=== PATIENT | female | born 1965 | race Caucasian/White ===

== ENCOUNTER 2021-11-06 07:40 | Day surgery (SDC) | payer SELFPAY ==
[2021-11-03 16:39] LABS: BASOPHILS % (AUTO) 0.6 % (0-1); EOSINOPHILS # (AUTO) 0.2 X10'3 (0-0.9); EOSINOPHILS % (AUTO) 2.9 % (0-6); LYMPHOCYTES % (AUTO) 33.6 % (21-51); MEAN CORPUSCULAR HEMOGLOBIN 28.6 PG (27.0-31.0); MEAN CORPUSCULAR HGB CONC 33.3 g/dL (33.0-36.5); MEAN CORPUSCULAR VOLUME 85.8 FL (78-98); MEAN PLATELET VOLUME 8.3 FL (7.4-10.4); MONOCYTES # (AUTO) 0.6 X10'3 (0-0.9); MONOCYTES % (AUTO) 10.2 % (2-12); NEUTROPHILS # (AUTO) 3.2 X10'3 (1.8-7.7); NEUTROPHILS % (AUTO) 52.7 % (42-75); PRE OP PLATELET COUNT 258 X10'3 (140-440); RED BLOOD COUNT 4.55 X10'6 (4.20-5.60); RED CELL DISTRIBUTION WIDTH 13.8 % (11.5-14.5)
[2021-11-03 16:54] LABS: ALBUMIN/GLOBULIN RATIO 1.1 (1.1-1.5); ALKALINE PHOSPHATASE 70 IU/L (46-116); BLOOD UREA NITROGEN 18 MG/DL (7-18); BUN/CREATININE RATIO 27.3 (6.6-38.0); CALCIUM 9.1 MG/DL (8.5-10.1); CHLORIDE 107 MMOL/L (99-107); CREATININE 0.66 MG/DL (0.40-0.90); PRE OP ALT 25 U/L (30-65); PRE OP ANION GAP 7 (8-16); PRE OP AST 18 U/L (10-37); PRE OP BILIRUB, TOTAL 0.3 MG/DL (0.0-1.0); PRE OP GLUCOSE 80 MG/DL (70-104); PRE OP POTASSIUM 3.5 MMOL/L (3.4-5.1); PRE OP SODIUM 145 MMOL/L (135-145); TOTAL CARBON DIOXIDE 30.6 MMOL/L (24-32); TOTAL PROTEIN 7.7 G/DL (6.4-8.2); eGFR > 90 ML/MIN
[~2021-11-06] VITALS: Ht 165.1 cm; Wt 72.5 kg
[2021-11-06] VITALS (8 sets, daily range): BP systolic 106–126; BP diastolic 61–81
[~2021-11-06 07:40] MED LIST: NO HOME MEDS; famotidine 20mg tablet PO ONE; ringers solution, lacted 1,000 ML IV SCH
[2021-11-06] MEDS ORDERED: proCHLORperazine 10 MG/2 ml inj IV PRN ×3 (08:25)
[2021-11-06] MEDS ORDERED: ondansetron/PF 4mg/2ml inj IV PRN ×3 (08:25)
[2021-11-06] MEDS ORDERED: meperidine/PF 25mg/ml syringe IV PRN ×9 (08:25)
[2021-11-06] MEDS ORDERED: morphine 2 MG/ML inj. syringe IV PRN ×3 (08:25)
[2021-11-06] MEDS ORDERED: morphine 4 MG/ML inj SYRINge IV PRN ×3 (08:25)
[2021-11-06] MEDS ORDERED: ringers solution, lacted 1,000 ML IV SCH ×3 (08:25)
[2021-11-06] MEDS ORDERED: BUPIVAcaine 0.5% inj/PF 30 ML ONE (09:31)
[2021-11-06] MEDS ORDERED: vasoPRESSIN 20 units/ml inj. ONE (09:37)
[2021-11-06] MEDS ORDERED: epiNEPHrine 1 mg/ml inj ONE (09:37)
[2021-11-06] MEDS ORDERED: LIDOcaine 1% (10mg/ml)w/preservative inj. 20ml MDV ONE (09:37)
[2021-11-06] MEDS ORDERED: cefepime 2g/NS 100ml ADVANTAGE 100 ML IV ONE (09:45)
[2021-11-06] MEDS ORDERED: dexamethasone sod phosphate 10mg/ml inj ONE (09:48)
[2021-11-06] MEDS ORDERED: ceFAZolin 2gm in dextrose, iso 50 ML IV ONE (09:48)
[2021-11-06] MEDS ORDERED: sevoflurane 250ml liquid IH ONE (09:48)
[2021-11-06] MEDS ORDERED: midazolam 1 mg/ML 2ml injection ONE (09:58)
[2021-11-06] MEDS ORDERED: FENTANYL CITRATE/PF 50 MCG/1 ML VIAL ONE (09:58)
[2021-11-06] MEDS ORDERED: LIDOcaine 2% (20mg/ml) 5ml vial ONE ×2 (10:02→10:07)
[2021-11-06] MEDS ORDERED: propofol inj 20 ML IV ONE (10:02)
[2021-11-06] MEDS ORDERED: ondansetron/PF 4mg/2ml inj ONE (10:07)
[2021-11-06] MEDS ORDERED: meperidine/PF 25mg/ml syringe ONE (10:26)
[2021-11-06] MEDS ORDERED: acetaminophen 1,000mg/100ml IV 100 ML IV ONE (11:07)
--- NOTE | 2021-11-06 11:26 | NUR ---
Received from OR via , accompanied by Anesthesiologist DR GONZALEZ and report given by Anesthesiolgist. AWAKENS TO VOICE. VITALS STABLE. DRESSING DI. PORFIRIO PAIN.
--- NOTE | 2021-11-06 12:36 | NUR ---
AWAKE AND ORIENTED. VITALS STABLE. DRESSING DI. PORFIRIO PAIN. HOME WITH HER SPOUSE AT THIS TIME.
== END 2021-11-06 12:36 | disposition home or self-care (01) ==
LOC: PAS 07:40
PROVIDERS: ATTEND Obstetrics & Gynecology
DX: N75.0 Cyst of Bartholin's gland (principal); E55.9 Vitamin D deficiency, unspecified; Z79.899 Other long term (current) drug therapy; Z86.19 Personal history of other infectious and parasitic diseases; Z90.721 Acquired absence of ovaries, unilateral; Z80.3 Family history of malignant neoplasm of breast
CPT/HCPCS: 36415; 56740; 80053; 82948; 85025; 86885; 86900; 86901; 93005; J0131; J0171; J0690; J1100; J2175; J2250; J2405; J2704; J3010; J3490; J7030; J7120; S0020; Z7506; Z7508; Z7512; A4215; A4618; A7000